=== PATIENT | female | born 1990 | race Caucasian/White ===

== ENCOUNTER 2017-05-17 16:24 | Emergency (ER) | payer OTHER ==
[~2017-05-17] VITALS: Ht 165.1 cm; Wt 61.2 kg
[2017-05-17] MEDS ORDERED: ACETAMINOPHEN ES 500 MG TABLET ONE (18:42)
[2017-05-17] MEDS ORDERED: ACETAMINOPHEN ES 500 MG TABLET PO ONE (19:00)
--- NOTE | 2017-05-17 19:07 | NUR ---
REPORT RECEIVED FROM LEANNE FOR BENITA.
--- NOTE | 2017-05-17 19:10 | NUR ---
CALLED , TRANSFERRED CALL TO NP. DAMIEN
--- NOTE | 2017-05-17 19:17 | NUR ---
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 VSS/RESP EVEN UNLABORED/NAD NOTED/SKIN WARM AND DRY/DENIES N-V-D/AOX4.
--- NOTE | 2017-05-17 19:31 | NUR ---
CALLED SABANA HOYOS [facility], PRESENTED PT, AWAITING CALL BACK FROM SABANA HOYOS
--- NOTE | 2017-05-17 19:46 | NUR ---
AUTH FROM SONG SCHMID #[id number]
--- NOTE | 2017-05-17 20:18 | NUR ---
[facility] [address] [facility] [address] [facility] ER TO ER
--- NOTE | 2017-05-17 20:44 | NUR ---
20G IV X 1 ATTEMPT TO R AC USING ASEPTIC TECH, BLOOD HANDED OVER TO THE LAB AT THE BEDSIDE. IV FLUSHES EASILY WITH NS, NO S/S INFILTRATION.
[2017-05-17 20:55] LABS: CALCIUM, SERUM 8.7 mg/dL (8.5-10.1); POTASSIUM 3.3 mmol/L (3.5-5.1)
[2017-05-17 20:57] LABS: BASOPHILS # (AUTO) 0.1 /CMM (0.0-0.2); BASOPHILS % (AUTO) 0.5 % (0.0-2.0); EOSINOPHILS # (AUTO) 0.1 /CMM (0.0-0.7); HEMATOCRIT 36 % (33-45); HEMOGLOBIN 12.9 g/dL (11.5-14.8); LYMPHOCYTES # (AUTO) 3.5 /CMM (0.8-4.8); LYMPHOCYTES % (AUTO) 32.3 % (20.0-44.0); MEAN CORPUSCULAR HEMOGLOBIN 31 PG (26.0-33.0); MEAN CORPUSCULAR HGB CONC 36 g/dl (31.0-36.0); MEAN CORPUSCULAR VOLUME 86 fL (82-100); MONOCYTES # (AUTO) 0.5 /CMM (0.1-1.30); MONOCYTES % (AUTO) 4.5 % (2.0-12.0); NEUTROPHILS # (AUTO) 6.5 /CMM (1.8-8.9); NEUTROPHILS % (AUTO) 61.7 % (43.0-81.0); PLATELET COUNT (AUTO) 244 /CMM (150-450); RDW COEFFICIENT OF VARIATION 11.8 (11.5-15.0); RED BLOOD CELL COUNT(AUTO) 4.15 MIL/uL (4.0-5.2); WHITE BLOOD COUNT (AUTO) 10.7 K/uL (4.3-11.0)
--- NOTE | 2017-05-17 20:59 | NUR ---
REPORT CALLED TO RYLEE PULIDO IN THE ER, INFORMED HIM LABS MAY NOT BE READY BY THE TIME PATIENT LEAVES HE STATES IF THEY ARE NOT READY PLEASE FAX RESULTS TO [phone]
[2017-05-17] MEDS ORDERED: IV NS 0.9% 1,000 ML BAG IV ONE (21:00)
--- NOTE | 2017-05-17 21:00 | NUR ---
REPORT GIVEN [place] EMT WITH [facility] FOR TRANSFER TO [place]. S.
[2017-05-17 21:02] VITALS: BP 148/78
== END 2017-05-17 21:11 | disposition short-term general hospital (02) ==
LOC: ER 16:27
DX: S19.9XXA Unspecified injury of neck, initial encounter (principal); W21.02XA Struck by soccer ball, initial encounter; Y93.66 Activity, soccer; Y92.89 Other specified places as the place of occurrence of the external cause; Y99.8 Other external cause status
CPT/HCPCS: 36415; 72125; 80048; 85025; 99285; A4606; J7030; Z7610